=== PATIENT | male | born 1975 | race Caucasian/White ===

== ENCOUNTER → 2019-10-04 11:44 | Outpatient (CLI) | payer BC, SELFPAY ==
--- NOTE | ~2019-10-04 | US_ITS ---
EXAMINATION: US soft tissue abdomen INDICATION: Bulging of the abdominal wall TECHNIQUE: Targeted high-resolution ultrasound is performed in the area of clinical concern. COMPARISON: None available FINDINGS: No sonographically detected abdominal wall defect is identified. Normal subcutaneous tissue s are seen. IMPRESSION: 1. No sonographic evidence of hernia. Reviewed, dictated and finalized at location A.
== END ==
PROVIDERS: PCP Emergency Medicine; Visit Provider Emergency Medicine
DX: R19.00 Intra-abdominal and pelvic swelling, mass and lump, unspecified site (principal)
CPT/HCPCS: 76705

== ENCOUNTER 2025-02-11 10:25 | Emergency (ER) | payer OTHER, SELFPAY ==
[2025-02-11] VITALS (7 sets, daily range): BP systolic 128–146; BP diastolic 65–78; PULSE 64–82; RESP 15–22; O2SAT 93–100
--- NOTE | ~2025-02-11 | CT_ITS ---
EXAMINATION: CT brain wo con COMPARISON: None HISTORY: ?vertigo? dizziness? started this AM TECHNIQUE: Axial images were obtained through the brain without IV contrast. CT scan performed using dose optimization techniques including the following automated exposure control; adjustment of mA and/or kV; use of iterative reconstruction technique. Automatic exposure control was used to reduce radiation dose. Permanent radiation dose record is archived to PACS. FINDINGS: No acute infarct or parenchymal hemorrhage. No abnormal mass or mass effect. No midline shift. No extra-axial fluid collections. No hydrocephalus. . Mastoid air cells unremarkable. Sinuses and orbits unremarkable. No acute fracture. No significant facial or scalp soft tissue swelling evident. No radiopaque foreign body is seen. Impression: 1.No acute intracranial abnormality. Reviewed, dictated and finalized at location P. NE WIPER Impression: 1.No acute intracranial abnormality.
--- NOTE | ~2025-02-11 | XR_ITS ---
EXAMINATION: XR chest 2V 02/11/2025 11:47 INDICATION: Syncope and dizziness PROCEDURE: 2 view chest COMPARISON: No prior studies for comparison. FINDINGS: The lungs are clear. The cardiomediastinal silhouette is within normal limits. There are no pleural effusions. There is no pneumothorax suspected. IMPRESSION: 1: NO ACUTE CARDIOPULMONARY DISEASE. Reviewed, dictated and finalized at location I. REPAIRER STAMPING
--- NOTE | 2025-02-11 10:27 | ECG_ITS ---
Test Date: 2025-02-11 10:32:32 Measurements Intervals [place] Rate: 80 P: 38 ME: 193 QRS: 41 QRSD: 90 T: 50 QT: 370 QTc: 429 Interpretive Statements SINUS RHYTHM CANNOT R/O SEPTAL INFARCT, AGE INDETERMINATE BASELINE ARTIFACT- I, II, III, AVR AVL, AVF ABNORMAL ECG No previous ECG available for comparison Electronically Signed On 02-11-2025 10:50:56 DOCK LOADER by Martín Orozco D.O.
[2025-02-11 10:45] LABS: Hematocrit 47.8 % (42.0-52.0); Hemoglobin 16.2 g/dL (14.0-18.0); Immature Granulocyte Percent A 0.5 % (0-0.5); Lymphocytes Absolute Auto 2.37 K/mm3 (0.9-3.2); Mean Corpuscular HGB Conc 33.9 g/dl (32-36); Mean Corpuscular Hemoglobin 29.3 pg (26-34); Mean Corpuscular Volume 86.6 fl (80-100); Nucleated Red Blood Cells Absolute Auto 0.000 K/mm3 (0.0-0.012); Nucleated Red Blood Cells Perc 0.0 % (0.0-0.2); Platelet Count Result 294 k/mm3 (150-375); Red Blood Count 5.52 M/mm3 (4.6-6.20); White Blood Count 9.9 K/mm3 (4.5-10.0)
[2025-02-11 11:04] LABS: Alanine Aminotransferase 19 U/L (6-50); Albumin Level 4.7 g/dL (3.5-5.1); Alkaline Phosphatase 57 U/L (38-126); Anion Gap 6 mmol/L (4-12); Aspartate Amino Transferase 23 U/L (17-59); Bilirubin,Total 0.7 mg/dL (0.2-1.3); Blood Urea Nitrogen 24 mg/dL (9-20); Calcium 9.4 mg/dL (8.4-10.2); Carbon Dioxide 25 mmol/L (22-30); Chloride 104 mmol/L (98-107); Estimated CRCL calculation 103 ml/min; Estimated Glomerular Filt Rate > 60; Glucose 110 mg/dL (65-110); Potassium 4.2 mmol/L (3.4-5.0); Sodium 135 mmol/L (137-145); Total Protein 8.3 g/dL (6.3-8.2)
[2025-02-11 11:10] LABS: Troponin I < 0.012 ng/mL (0.000-0.034)
--- OUTSIDE RECORDS SUMMARY | 2025-02-11 11:19 | XMS_ITS | Clinical Summary ---
Author Organization [facility] Address [address] [place] [address] Care Team Providers Care Bull Riveter Name Role Phone Unavailable Primary Care Provider Unavailabl e Source Comments [facility],non-owned Affiliates and Associated Physician Practices is amultiple site organization consisting of ambulatory clinics and hospital sitesin [place], [place], [place] and [place]. This disclosure is being madepursuant to the Care Everywhere program and may not contain all information available regarding this patient. Last updated 17.[facility] Allergies No known active allergies Medications * Be aware that medications may not be up to date on this document. Alwaysverify current medications with the patient. 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 Gender Identity Not on file Sexual Orientation Not on file Last Filed Vital Signs Vital Sign Reading Time Taken Comments Blood Pressure 122/64 04/24/2017 5:01 PM VMWARE ENGINEER Pulse 93 04/24/2017 5:01 PM VMWARE ENGINEER Temperature 37 C (98.6 F) 04/24/2017 5:01 PM VMWARE ENGINEER Respiratory Rate 16 04/24/2017 5:01 PM VMWARE ENGINEER Oxygen Saturation 97% 04/24/2017 5:01 PM VMWARE ENGINEER Inhaled Oxygen Concentration - - Weight 120.2 kg (265 lb) 04/24/2017 5:01 PM VMWARE ENGINEER Height 188 cm (6' 2) 04/24/2017 5:01 PM VMWARE ENGINEER Body Mass Index 34.02 04/24/2017 5:01 PM VMWARE ENGINEER Plan of Treatment Health Maintenance Due Date Last Done Comments PENG (AGES 45-75) - COL ON CA SCREENING 1974 COLON MONITORING 1974 COLONOSCOPY - COLON CA SCREENING 1974 CT COLONOGRAPHY - COLON CA SCREENING 1974 Colorectal Cancer Screening 1974 FIT - COLON CA SCREENING 1974 FLEX SIG - COLON CA SCREENING 1974 LIPID TESTING 1974 HIV SCREENING 1989 HEPATITIS C SCREENING 06/16/1992 DTAP/TDAP/TD VACCINES (1 - Tdap) 1993 HEPATITIS B VACCINE (1 of 3 - 19+ 3-dose series) 1993 SCREENING FOR DIABETES 04/24/2017 DEPRESSION SCREENING 03/13/2024 PNEUMOCOCCAL VACCINE 50+ (1 of 1 - PCV) 2024 ZOSTER VACCINE (1 of 2) 2024 COVID-19 VACCINE (1 - 2024-2 6 season) 2024 INFLUENZA VACCINE (#1) 2024 HIB VACCINE Aged Out No longer eligi ble based on patient's age to complete this topic HPV VACCINE Aged Out No longer eligi ble based on patient's age to complete this topic MENINGOCOCCAL (Group B) VACC INE SHARED DECISION-MAKING Aged Out No longer eligibl e based on patient's age to complete this topic MENINGOCOCCAL GROUPS A/C/Y/W VACCINE Aged Out No longer eligible b ased on patient's age to complete this topic Insurance [facility]
[2025-02-11] MEDS: LACTATED RINGERS 1,000 ML 999 ML IV CONT (11:46)
--- NOTE | 2025-02-11 11:52 | PC.NURSE ---
Pt reports concern about potential carbon monoxide poisoning due to working in enclosed [employer] for past 2 days. Carboxy screening showing 2-3%. Dr Alcantara notified
[2025-02-11 12:27] LABS: Influenza A QL RT-PCR Negative (Negative); Influenza B QL RT-PCR Negative (Negative); RSV RNA, RT-PCR Negative (Negative); SARS-CoV-2 RNA PCR Negative (Negative)
--- NOTE | 2025-02-11 13:10 | ECG_ITS ---
Test Date: 2025-02-11 13:42:58 Measurements Intervals [place] Rate: 73 P: 15 SD: 188 QRS: 33 QRSD: 105 T: 87 QT: 381 QTc: 422 Interpretive Statements SINUS RHYTHM LOW QRS VOLTAGE IN LIMB LEADS CANNOT R/O SEPTAL INFARCT, AGE INDETERMINATE ABNORMAL ECG Compared to ECG 02/11/2025 10:32:32 NO SIGNIFICANT CHANGE Electronically Signed On 02-11-2025 14:47:02 IRRIGATOR OVERHEAD by Martín Orozco D.O.
[2025-02-11 14:12] LABS: Troponin I < 0.012 ng/mL (0.000-0.034)
--- NOTE | 2025-02-11 15:21 | ED_ITS ---
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 When he was very young he had a concussion had similar symptoms but that was 30 years ago. No nausea vomiting, chest pain or shortness of breath. Related Data Allergies Allergy/AdvReac Type Severity Reaction Status Date / Time No Known Allergies Allergy Verified 02/11/25 10:34 Review of Systems 2 Review of Systems: All systems reviewed & are unremarkable except as noted in HPI and below PMFSH Past Medical History Medical History (Updated 02/11/25 @ 14:15 by Uma Alcantara MD) Hyperlipidemia Surgical History Surgical History History of mandibular surgery History of wisdom tooth extraction Family History Family History Mother Hypertension Social History Social History Smoking packs per day: 0.5 Smoking cigarettes per day: 10.0 Years smoked: 30 Smoking pack-years: 15.00 Smoking status: Current every day smoker Alcohol intake: current Occupation/Education: occupation Additional occupation/education comments: [employer] Narrative: EXAMINATION OF ORGAN SYSTEMS/BODY AREAS: Constitutional: Vital signs per nursing GENERAL:[No acute distress, non-toxic appearing.] HEAD: Normal with no signs of head trauma. EYES: EOMI, conjunctiva normal, PERRL ENT: Hearing grossly intact LUNGS: Nonlabored breathing. HEART: [Regular rate and rhythm] ABD: [Soft], [nontender to palpation] EXT: Normal range of motion SKIN: [No rashes or lesions.] NEURO: [Alert. No gross focal sensory or strength deficits.] PSYCH: Normal affect Course Vital Signs Vital signs: Vital Signs Pulse Rate 82 02/11/25 10:29 Respiratory Rate 18 02/11/25 10:29 Blood Pressure 146/78 H 02/11/25 10:29 Pulse Oximetry 93 02/11/25 10:29 Oxygen Delivery Room Air 02/11/25 10:29 Pulse Rate 73 02/11/25 14:25 Respiratory Rate 16 02/11/25 14: Blood Pressure 129/73 02/11/25 14: Pulse Oximetry 98 02/11/25 14:25 Oxygen Delivery Room Air 02/11/25 10:29 MDM MDM Narrative Medical decision making narrative: Patient presents with sensation of dizziness, started at work. He then drank a whole bottle of water before arrival here and is feeling slightly better. No chest pain, shortness of breath, no history of cardiac or seizures. EKG - 12-Lead: Performed at 1032. Interpreted by me. [Sinus rhythm]. Rate 80. [Normal] axis. VA-interval [normal]. QRS duration [normal]. QTc [normal]. Some possible ST T changes in inferior leads without any reciprocal depressions. EKG did appear questionable however patient without any chest pain. I will still obtain cardiac workup and obtain troponins. Two troponins both negative. Repeat EKG obtained EKG - 12-Lead: Performed at 1342. Interpreted by me. [Sinus rhythm]. Rate 73. [Normal] axis. VA-interval [normal]. QRS duration [normal]. QTc [normal]. Still some vague ST abnormality and earlier but less pronounced, and patient is now saying that he is completely asymptomatic. He was able to ambulate to and from the bathroom without any issues. Patient and both feel comfortable with discharge with return precautions and follow-up to his primary care doctor for further workup was needed. Strict return precautions discussed Differential Diagnosis Differential Diagnosis: Differential diagnostic considerations for dizziness include dehydration, arrhythmia, benign paroxysmal positional vertigo, orthostatic hypotension, vertebral basilar insufficiency, cerebrovascular accident, acute vestibular neuronitis, transient cerebral ischemia.?? Lab Data 02/11/25 10:38 02/11/25 10:38 Labs: Lab Results 02/11/25 02/11/25 02/11/25 Range/Units 10:38 11:24 13:43 WBC 9.9 (4.5-10.0) K/mm3 RBC 5.52 (4.6-6.20) M/mm3 Hgb 16.2 (14.0-18.0) g/dL Hct 47.8 (42.0-52.0) % MCV 86.6 (80-100) fl MCH 29.3 (26-34) pg MCHC 33.9 (32-36) g/dl RDW 12.8 (11.5-14.5) % Plt Count 294 (150-375) k/mm3 MPV 9.2 (7.4-10.4) fl Immature Gran % (Auto) 0.5 (0-0.5) % Neut % (Auto) 64.4 (45.5-73.1) % Lymph % (Auto) 23.9 (18.3-44.2) % Nance % (Auto) 7.8 (2.6-8.5) % Eos % (Auto) 2.7 (0-4.4) % Baso % (Auto) 0.7 (0.2-1.2) % Lymph # (Auto) 2.37 (0.9-3.2) K/mm3 Nance # (Auto) 0.8 H (0.1-0.6) K/mm3 Eos # (Auto) 0.3 (0-0.3) K/mm3 Baso # (Auto) 0.1 (0.0-0.1) K/mm3 Abs Immat Gran (auto) 0.05 H (0.00-0.031) K/mm3 Absolute Neuts (auto) 6.4 (1.3-6.7) K/mm3 Absolute Nucleated RBC 0.000 (0.0-0.012) K/mm3 Nucleated RBC % 0.0 (0.0-0.2) % Sodium 135 L (137-145) mmol/L Potassium 4.2 (3.4-5.0) mmol/L Chloride 104 (98-107) mmol/L Carbon Dioxide 25 (22-30) mmol/L Anion Gap 6 (4-12) mmol/L BUN 24 H (9-20) mg/dL Creatinine 1.02 (0.7-1.3) mg/dL Estim Creat Clear Calc 103 ml/min Estimated GFR > 60 (59 - ) Glucose 110 (65-110) mg/dL Calcium 9.4 (8.4-10.2) mg/dL Total Bilirubin 0.7 (0.2-1.3) mg/dL AST 23 (17-59) U/L ALT 19 (6-50) U/L Alkaline Phosphatase 57 (38-126) U/L Troponin I < 0.012 < 0.012 (0.000-0.034) ng/mL Total Protein 8.3 H (6.3-8.2) g/dL Albumin 4.7 (3.5-5.1) g/dL Influenza A (RT-PCR) Negative (Negative) Influenza B (RT-PCR) Negative (Negative) RSV (RT-PCR) Negative (Negative) SARS-CoV-2 RNA (RT-PCR) Negative (Negative) Imaging Data Radiologist's impression: ITS Impressions Chest X-Ray 02/11/25 11:49 IMPRESSION: 1: NO ACUTE CARDIOPULMONARY DISEASE. Head CT 02/11/25 12:30 Impression: 1.No acute intracranial abnormality. Discharge Plan Discharge Clinical Impression: Dizziness Patient Disposition: Home Condition: Stable Instructions: Dizziness (ED) Additional Instructions: Please follow up with your doctor; make sure keeping hydrated. If your symptoms return, especially if you start having any chest pain or shortness of breath, please come back to the emergency room. Patient Language: Icelandic Prescriptions: New meclizine 25 mg tablet 25 mg PO TID PRN (Reason: dizziness) Qty: 14 0RF Follow-up/Referrals: Prasad Odonnell MD [Primary Care Provider, Family Practice]
== END 2025-02-11 14:26 | disposition home or self-care (01) ==
PROVIDERS: Emergency Provider Emergency Medicine; PCP Emergency Medicine
DX: R42 Dizziness and giddiness (principal); Z20.822 Contact with and (suspected) exposure to COVID-19; E78.5 Hyperlipidemia, unspecified; F17.210 Nicotine dependence, cigarettes, uncomplicated; R94.31 Abnormal electrocardiogram [ECG] [EKG]
CPT/HCPCS: 36415; 70450; 71046; 80053; 84484; 85025; 87637; 93005; 96360; 99284; J7120